=== PATIENT | female | born 1975 | race Caucasian/White ===

== ENCOUNTER 2016-12-27 10:46 | Emergency (ER) | payer OTHER ==
[~2016-12-27] VITALS: Wt 77.0 kg
[2016-12-27] MEDS ORDERED: ONDANSETRON (ODT) 4 MG TAB ODT STA (11:49)
[2016-12-27] MEDS ORDERED: KETOROLAC 30 MG INJ IM STA (11:49)
[2016-12-27 12:15] LABS: ADD UMIC YES; URINE BILIRUBIN (Dip) NEGATIVE (NEGATIVE); URINE BLOOD (Dip) 3+ (NEGATIVE); URINE COLOR LT. YELLOW (YELLOW); URINE GLUCOSE (Dip) NEGATIVE (NEGATIVE); URINE KETONES (Dip) NEGATIVE (NEGATIVE); URINE LEUKOCYTE ESTERASE (Dip) NEGATIVE (NEGATIVE); URINE NITRITE (Dip) NEGATIVE (NEGATIVE); URINE TOTAL PROTEIN (Dip) NEGATIVE (NEGATIVE); URINE UROBILINOGEN (Dip) 0.2 E.U./dL (0.1-1.0)
[2016-12-27 12:22] LABS: BASOPHILS % 0.5 % (0.0-2.0); EOSINOPHILS # 0.1 10^3/ul (0.0-0.5); EOSINOPHILS % 0.7 % (0.0-7.0); HEMATOCRIT 34.7 % (37.0-47.0); HEMOGLOBIN 11.9 g/dl (12.0-16.0); LYMPHOCYTES # 1.5 10^3/ul (0.8-2.9); LYMPHOCYTES % 18.4 % (15.0-51.0); MEAN CORPUSCULAR HEMOGLOBIN 30.2 pg (29.0-33.0); MEAN CORPUSCULAR HGB CONC 34.2 g/dl (32.0-37.0); MEAN CORPUSCULAR VOLUME 88.2 fl (82.0-101.0); MEAN PLATELET VOLUME 7.5 fl (7.4-10.4); MONOCYTE # 0.5 10^3/ul (0.3-0.9); MONOCYTES % 6.1 % (0.0-11.0); NEUTROPHILS % 74.3 % (39.0-77.0); PLATELET COUNT 339 10^3/UL (140-440); RED BLOOD COUNT 3.94 10^6/ul (4.20-5.40); RED CELL DISTRIBUTION WIDTH 12.4 % (11.5-14.5); UNCORRECTED WBC 8.1 10^3/ul (4.8-10.8); WHITE BLOOD COUNT 8.1 10^3/ul (4.8-10.8)
[2016-12-27 12:24] LABS: BACTERIA,URINE FEW; URINE RBCS 0-2 /HPF (0)
[2016-12-27 12:25] LABS: ALBUMIN 3.9 g/dl (3.3-4.9)
[2016-12-27 12:26] LABS: POTASSIUM 3.9 mmol/L (3.5-5.1)
[2016-12-27 12:28] LABS: ALBUMIN/GLOBULIN RATIO 1.14; BILIRUBIN,INDIRECT 0.2 mg/dl (0-1.1); BILIRUBIN,TOTAL 0.2 mg/dl (0.2-1.3); CREATININE 0.65 mg/dl (0.44-1.00); TOTAL PROTEIN 7.3 g/dl (6.1-8.1)
[2016-12-27 12:31] LABS: CONDITION 1
--- NOTE | 2016-12-27 13:09 | RADRPT ---
PROCEDURE: US Pelvis. CLINICAL INDICATION: Pelvic pain TECHNIQUE: Multiple sonographic images of the pelvis were obtained utilizing a transabdominal and endovaginal technique. The images were reviewed on a PACS workstation. COMPARISON: October 08, 2013 FINDINGS: The uterus is visualized and measures 9.7 x 4.9 x 5.7 cm. The endometrial echo complex measures 5 mm thickness. No uterine masses are identified. The right ovary measures 5.9 x 3.5 x 4.3 cm . The left ovary measures 9.0 x 7.3 x 7.3 cm. A 6.8 cm irregularly shaped mildly hyperechoic soft tissue echogenicity lesion is identified on the left ova ry. A few complex cyst containing echogenic debris are identified on the right ovary. The largest measures up to 3.4 cm. The ovaries demonstrate normal vascularity. No pelvic free fluid is seen. IMPRESSION: 6.8 cm irregularly shaped hyperechoic, soft tissue echogenicity lesion on the left ovary. This coul d reflect a large hemorrhagic cyst, endometrioma, dermoid or potentially tumor. A similar lesion was noted on prior exam. However, the current lesion appears larger than on prior exam (previously 5.4 cm).. Close continued follow-up with repeat exam in 8 weeks to assess stability is recommended. A lternatively further characterization with CT or MRI could be helpful. A few complex cyst containing echogenic debris on the right ovary, measuring up to 3.4 cm. These li uma reflect hemorrhagic cysts. However continued follow-up with repeat exam in 8 weeks to assess s tability is recommended. If further characterization of the organs of the pelvis is needed CT or MRI should be considered. RPTAT: AA .Kristopher Russell MD, MD Date Time Electronically viewed and signed by .Kristopher Russell MD, on 12/27/2016 13:08 .P/
--- NOTE | 2016-12-27 14:11 | RADRPT ---
PROCEDURE: CT Abdomen and Pelvis without contrast. CLINICAL INDICATION: Abdominal pelvic pain. Right lower quadrant pain. Abnormal pelvic ultrasound . TECHNIQUE: CT scan of the abdomen and pelvis without contrast was performed on a multidetector hig h-resolution CT scanner. The patient was scanned without intravenous contrast. Coronal and sagittal reformatted images were obtained from the axial source images. Images were reviewed on a high-resol [employer] PACS workstation. The total exam CTDI equals 12.56 mGy and the total exam DLP equals 739.68 mG y-cm. One or more of the following dose reduction techniques were used: - Automated exposure control. - Adjustment of the mA and/or kV according to patient size. - Use of iterative reconstruction technique. COMPARISON: Pelvic ultrasound dated 12/27/2016; pelvic ultrasound dated 10/08/2013 FINDINGS: CT abdomen: The lung bases are clear. The heart size is normal, without pericardial thickening or effusion. Th e liver is normal in size and density without focal mass or intrahepatic biliary dilatation. The sp avery is normal in size and homogeneous in density. The stomach is partially collapsed, but is gross ly unremarkable. The pancreas as visualized is normal. The gallbladder and biliary tree are unrema rkable and there is no evidence for biliary dilatation. The adrenal glands are symmetric and normal . The kidneys are symmetrically unremarkable as well. No renal calculus or obstructive uropathy or mass lesion is seen. The aorta is of normal caliber. There is no retroperitoneal lymphadenopathy. The janey hepatis reg ion is clear. The bowel and mesentery, as visualized, are equally unremarkable. CT pelvis: The small bowel loops situated within the pelvis are unremarkable. The appendix is visualized and i s normal. The pelvic organs are remarkable for a large complex heterogeneous dense cystic masses in volving the ovaries bilaterally, the larger of which is in the left ovary measuring up to 6.7 cm in maximal dimension. Multiple additional smaller cysts are seen involving the adnexal regions and ova spencer bilaterally. Further evaluation with pelvic ultrasound is advised. The pelvic sidewalls and i nguinal regions are clear. The sigmoid colon and rectum are unremarkable. No free fluid is present . No acute inflammation is identified at this time. The surrounding osseous structures are remarkable for degenerative spondylosis of the spine. No ost eolytic or osteoblastic lesion is detected. IMPRESSION: 1. Complex cystic masses within the pelvis. Further evaluation with MRI is advised. (Unfortunatel y, the prior ultrasound pelvis report stated that a "CT or MRI should be considered." However, MRI is required for further assessment of these pelvic lesions. Evaluation is limited on this noncontra st CT scan. 2. Otherwise, the remainder of the CT abdomen pelvis is unremarkable. No other significant abnorma lity is identified. RPTAT: HMJB .Shady Diallo MD, MD Date Time Electronically viewed and signed by .Shady Diallo MD, on 12/27/2016 14:11 .B/
[2016-12-27] MEDS ORDERED: IBUP-1542 PO (14:38)
--- NOTE | 2016-12-27 14:53 | ERD ---
ER Documentation Chief Complaint Date/Time DATE: 12/27/16 TIME: 14:45 Chief Complaint LOWER ABD PAIN SINCE TODAY WITH NAUSE AND VOMITING. IRREGULAR PERIOD HPI Patient is a 41-year-old female with a history of left ovarian cyst, endometriosis who presents to the emergency department with lower abdominal pain 2 days. Patient states that her pain is primarily in the right lower quadrant. She states that the pain is constant and sharp in nature. Patient reports taking Menstridol and ibuprofen for symptoms which has minimally alleviated her pain. Patient reports a fever of 101F 3 days prior. Patient is currently afebrile. Patient reports nausea and denies any vomiting. She denies any pain with urination, frequency, urgency. Patient denies any excessive vaginal bleeding. Patient states she does have a history of irregular periods and she is currently on her period. ROS All systems reviewed and are negative except as per history of present illness. Medications Home Meds Active Scripts Ibuprofen* (Motrin*) 600 Mg Tab, 600 MG PO Q6, #30 TAB Prov:FORREST BEE PA-C 12/27/16 Allergies Allergies: Coded Allergies: No Known Drug Allergy (Verified Allergy, Unknown, 12/27/16) PMhx/Soc History of Surgery: Yes (D AND C) Anesthesia Reaction: No Hx Neurological Disorder: No Hx Respiratory Disorders: No Hx Cardiac Disorders: Yes (HTN) Hx Psychiatric Problems: No Hx Miscellaneous Medical Probl: No Hx Alcohol Use: No Hx Substance Use: No Hx Tobacco Use: No Smoking Status: Never smoker FmHx Family History: No diabetes Physical Exam Vitals Vital Signs Date Time Temp Pulse Resp B/P Pulse Ox O2 Delivery O2 Flow Rate FiO2 12/27/16 10:51 98.0 70 20 180/95 100 Physical Exam GENERAL: Well-developed, well-nourished female. Appears in no acute distress. HEAD: Normocephalic, atraumatic. EYES: Pupils are equally reactive bilaterally. EOMs grossly intact. No conjunctival erythema. ENT: Moist mucous membranes. No uvula deviation. No kissing tonsils. NECK: Supple. No meningismus. Normal range of motion of the neck. LUNG: Clear to auscultation bilaterally. No rhonchi, wheezing, rales or coarse breath sounds. HEART: Regular rate and rhythm. No murmurs, rubs or gallops. ABDOMEN: No scars, ecchymosis or rashes noted. Soft, and nondistended. Tender to palpation of the right lower quadrant and right pelvic region. No rebound tenderness, no guarding. (-) McBurney's point tenderness. No CVA tenderness. BACK: No midline tenderness. EXTREMITIES: Equal pulses bilaterally. No peripheral clubbing, cyanosis or edema. No unilateral leg swelling. NEUROLOGIC: Alert and oriented. Moving all four extremities without any difficulty. Normal speech. Steady gait. SKIN: Normal color. Warm and dry. No rashes or lesions. Result Diagram: 12/27/16 1208 12/27/16 1208 Results 24 hrs Laboratory Tests Test 12/27/16 12:04 12/27/16 12:08 Urine Bacteria FEW Urine Bilirubin NEGATIVE Urine Clarity CLEAR Urine Color LT. YELLOW Urine Epithelial Cells FEW Urine Glucose NEGATIVE% Urine Hemoglobin 3+ Urine Ketones NEGATIVE Urine Leukocyte Esterase NEGATIVE Urine Microscopic RBC 0-2/HPF Urine Microscopic WBC 0-2/HPF Urine Nitrite NEGATIVE Urine Specific Brackney <=1.005 Urine Total Protein NEGATIVE Urine Urobilinogen 0.2 E.U./dL Urine pH 6.5 Alanine Aminotransferase (ALT/SGPT) 29IU/L Albumin 3.9g/dl Albumin/Globulin Ratio 1.14 Alkaline Phosphatase 113IU/L Anion Gap 16 Aspartate Amino Transf (AST/SGOT) 28IU/L Basophils # 0.010^3/ul Basophils % 0.5% Blood Urea Nitrogen 10mg/dl Calcium Level 9.0mg/dl Carbon Dioxide Level 27mmol/L Chloride Level 104mmol/L Creatinine 0.65mg/dl Direct Bilirubin 0.00mg/dl Eosinophils # 0.110^3/ul Eosinophils % 0.7% Globulin 3.40g/dl Glucose Level 84mg/dl Hematocrit 34.7% Hemoglobin 11.9g/dl Indirect Bilirubin 0.2mg/dl Lipase 168U/L Lymphocytes # 1.510^3/ul Lymphocytes % 18.4% Mean Corpuscular Hemoglobin 30.2pg Mean Corpuscular Hemoglobin Concent 34.2g/dl Mean Corpuscular Volume 88.2fl Mean Platelet Volume 7.5fl Monocytes # 0.510^3/ul Monocytes % 6.1% Neutrophils # 6.010^3/ul Neutrophils % 74.3% Nucleated Red Blood Cells # 0.010^3/ul Nucleated Red Blood Cells % 0.0/100WBC Platelet Count 44202^3/UL Potassium Level 3.9mmol/L Red Blood Count 3.9410^6/ul Red Cell Distribution Width 12.4% Sodium Level 143mmol/L Total Bilirubin 0.2mg/dl Total Protein 7.3g/dl White Blood Count 8.110^3/ul Current Medications Medications (Trade) Dose Ordered Sig/Ashlee Route PRN Reason Start Time Stop Time Status Last Admin Dose Admin Ketorolac Tromethamine (Toradol) 30 mg ONCE STAT IM 12/27/16 11:49 12/27/16 11:52 DC 12/27/16 12:03 Ondansetron HCl (Zofran Odt) 4 mg ONCE STAT ODT 12/27/16 11:49 12/27/16 11:52 DC Procedures/MDM ED COURSE: The patient was stable throughout ED course. I kept the patient and/or family informed of laboratory and diagnostic imaging results throughout the ED course. DIAGNOSTIC IMAGING: Read by radiologist. DIAGNOSTIC IMAGING REPORT Patient: AC RUSSELL : 1975 Age: 41 Sex: F MR #: [id number] DOS: 12/27/16 1149 Ordering MD: FORREST BEE PA-C Location: [facility] Room/Bed: PROCEDURE: US Pelvis. CLINICAL INDICATION: Pelvic pain TECHNIQUE: Multiple sonographic images of the pelvis were obtained utilizing a transabdominal and endovaginal technique. The images were reviewed on a PACS workstation. COMPARISON: October 08, 2013 FINDINGS: The uterus is visualized and measures 9.7 x 4.9 x 5.7 cm. The endometrial echo complex measures 5 mm thickness. No uterine masses are identified. The right ovary measures 5.9 x 3.5 x 4.3 cm . The left ovary measures 9.0 x 7.3 x 7.3 cm. A 6.8 cm irregularly shaped mildly hyperechoic soft tissue echogenicity lesion is identified on the left ovary. A few complex cyst containing echogenic debris are identified on the right ovary. The largest measures up to 3.4 cm. The ovaries demonstrate normal vascularity. No pelvic free fluid is seen. IMPRESSION: 6.8 cm irregularly shaped hyperechoic, soft tissue echogenicity lesion on the left ovary. This could reflect a large hemorrhagic cyst, endometrioma, dermoid or potentially tumor. A similar lesion was noted on prior exam. However, the current lesion appears larger than on prior exam (previously 5.4 cm).. Close continued follow-up with repeat exam in 8 weeks to assess stability is recommended. Alternatively further characterization with CT or MRI could be helpful. A few complex cyst containing echogenic debris on the right ovary, measuring up to 3.4 cm. These likely reflect hemorrhagic cysts. However continued follow- up with repeat exam in 8 weeks to assess stability is recommended. If further characterization of the organs of the pelvis is needed CT or MRI should be considered. RPTAT: AA .Kristopher Russell MD, Date Time Electronically viewed and signed by .Kristopher Russell MD, on 12/27/2016 13:08 .P/ CC: FORREST BEE PA-C DIAGNOSTIC IMAGING REPORT Patient: AC RUSSELL : 1975 Age: 41 Sex: F MR #: [id number] DOS: 12/27/16 1242 Ordering MD: FORREST BEE PA-C Location: [facility] Room/Bed: PROCEDURE: CT Abdomen and Pelvis without contrast. CLINICAL INDICATION: Abdominal pelvic pain. Right lower quadrant pain. Abnormal pelvic ultrasound. TECHNIQUE: CT scan of the abdomen and pelvis without contrast was performed on a multidetector high-resolution CT scanner. The patient was scanned without intravenous contrast. Coronal and sagittal reformatted images were obtained from the axial source images. Images were reviewed on a high-resolution PACS workstation. The total exam CTDI equals 12.56 mGy and the total exam DLP equals 739.68 mGy-cm. One or more of the following dose reduction techniques were used: - Automated exposure control. - Adjustment of the mA and/or kV according to patient size. - Use of iterative reconstruction technique. COMPARISON: Pelvic ultrasound dated 12/27/2016; pelvic ultrasound dated 2012 FINDINGS: CT abdomen: The lung bases are clear. The heart size is normal, without pericardial thickening or effusion. The liver is normal in size and density without focal mass or intrahepatic biliary dilatation. The spleen is normal in size and homogeneous in density. The stomach is partially collapsed, but is grossly unremarkable. The pancreas as visualized is normal. The gallbladder and biliary tree are unremarkable and there is no evidence for biliary dilatation. The adrenal glands are symmetric and normal. The kidneys are symmetrically unremarkable as well. No renal calculus or obstructive uropathy or mass lesion is seen. The aorta is of normal caliber. There is no retroperitoneal lymphadenopathy. The janey hepatis region is clear. The bowel and mesentery, as visualized, are equally unremarkable. CT pelvis: The small bowel loops situated within the pelvis are unremarkable. The appendix is visualized and is normal. The pelvic organs are remarkable for a large complex heterogeneous dense cystic masses involving the ovaries bilaterally, the larger of which is in the left ovary measuring up to 6.7 cm in maximal dimension. Multiple additional smaller cysts are seen involving the adnexal regions and ovaries bilaterally. Further evaluation with pelvic ultrasound is advised. The pelvic sidewalls and inguinal regions are clear. The sigmoid colon and rectum are unremarkable. No free fluid is present. No acute inflammation is identified at this time. The surrounding osseous structures are remarkable for degenerative spondylosis of the spine. No osteolytic or osteoblastic lesion is detected. IMPRESSION: 1. Complex cystic masses within the pelvis. Further evaluation with MRI is advised. (Unfortunately, the prior ultrasound pelvis report stated that a "CT or MRI should be considered." However, MRI is required for further assessment of these pelvic lesions. Evaluation is limited on this noncontrast CT scan. 2. Otherwise, the remainder of the CT abdomen pelvis is unremarkable. No other significant abnormality is identified. RPTAT: HMJB .Shady Diallo MD, MD Date Time Electronically viewed and signed by .Shady Diallo MD, MD on 12/27/2016 14:11 .B/ CC: FORREST BEE PA-C MEDICAL DECISION MAKING: This is a 41-year-old female who presents with right lower quadrant abdominal pain and right sided pelvic pain. Patient reported a history of endometriosis and left ovarian cyst. Vital signs were reviewed. Patient is afebrile. CBC showed no evidence of systemic infection. Hemoglobin level was noted to be 11.9 , hematocrit of 34.7. CMP showed no evidence of electrolyte abnormalities, severe acidosis, alkalosis, renal failure, or liver disease. Lipase showed no evidence of acute pancreatitis. UA showed no evidence of acute infection. Positive hemoglobin findings are likely due to the fact that patient is currently menstruating. Low suspicion for UTI, pyelonephritis or nephrolithiasis. Urine test was negative. Pelvic ultrasound showed 6.8 cm irregularly shaped hyperechoic, soft tissue echogenicity lesion on the left ovary. This could reflect a large hemorrhagic cyst, endometrioma, dermoid or potentially tumor. A similar lesion was noted on prior exam. However, the current lesion appears larger than on prior exam (previously 5.4 cm).. Close continued follow-up with repeat exam in 8 weeks to assess stability is recommended. Alternatively further characterization with CT or MRI could be helpful. A few complex cyst containing echogenic debris on the right ovary, measuring up to 3.4 cm. These likely reflect hemorrhagic cysts. However continued follow-up with repeat exam in 8 weeks to assess stability is recommended. CT abdomen pelvis without IV contrast showed Complex cystic masses within the pelvis. Further evaluation with MRI is advised. ( Unfortunately, the prior ultrasound pelvis report stated that a "CT or MRI should be considered." However, MRI is required for further assessment of these pelvic lesions. Evaluation is limited on this noncontrast CT scan. Otherwise, the remainder of the CT abdomen pelvis is unremarkable. No other significant abnormality is identified. At this time, patient's presentation is most consistent with bilateral ovarian cysts. I have a much lower clinical concern for acute coronary syndrome, lower lobe pneumonia, DKA, bowel perforation, bowel obstruction, cholecystitis, pancreatitis, splenic rupture, diverticulosis, diverticulitis, UTI, pyelonephritis, nephrolithiasis, appendicitis, , ectopic , ovarian torsion or tubo-ovarian abscess. I discussed the patient's ultrasound and CT scan results with her at length.Currently, ultrasound report shows that the ovaries demonstrate normal vascularity. Patient understands that given the increased size of the patient's left ovarian cyst, patient has an increased risk of ovarian torsion in the future. Patient's understands the importance of following up with her [facility]URSE [facility]Y in 8 weeks for follow-up examination and repeat ultrasound. Patient was given a copy of blood work and imaging studies. PRESCRIPTIONS: Ibuprofen DISCHARGE: At this time, patient is stable for discharge and outpatient management. I have instructed the patient to follow-up with his/her primary care physician/OBGYN in 1-2 days. I have instructed the patient to promptly return to the ER at any time for any new or worsening symptoms including increased pain, nausea, vomiting, diarrhea, fever, weakness or LOC. The patient and/or family expressed understanding of and agreement with this plan. All questions were answered. Home care instructions were provided. Patients blood pressure was elevated (>120/80) but appears stable without evidence of hypertensive emergency, hypertensive urgency or end-organ failure. I had discussion with the patient about the risks of hypertension. I have advised the patient to follow up with his/her primary care physician for outpatient monitoring and treatment for hypertension in 2-3 days. I have instructed the patient to return to the ER for any new or worsening symptoms including chest pain, shortness of breath, headache, blurred vision, confusion, nausea, vomiting or LOC. Departure Diagnosis: Primary Impression: Ovarian cyst Laterality: bilateral Qualified Code: N83.201 - Cysts of both ovaries Condition: Stable Patient Instructions: What Are Ovarian Cysts? Referrals: JARAD CODY MD (PCP) Additional Instructions: Call your primary care doctor/OBGYN TOMORROW for an appointment during the next 1-2 days.See the doctor sooner or return here if your condition worsens before your appointment time. Patient should follow-up with her NURSE EMERGENCY for repeat ultrasound in 8 weeks. Patient given imaging and blood work reports. Patient advised to return to the ER for any new or worsening pain, nausea, vomiting, LOC. FORREST BEE PA-C Dec 27, 2016 14:53
== END 2016-12-27 15:25 | disposition home or self-care (01) ==
LOC: FTE 10:46
DX: N83.201 Unspecified ovarian cyst, right side (principal); I10 Essential (primary) hypertension; R10.2 Pelvic and perineal pain; R11.0 Nausea
CPT/HCPCS: 74176; 76830; 76856; 80053; 81001; 81003; 83690; 85025; 96372; J1885; Z7502; Z7610

== ENCOUNTER 2017-11-07 04:12 | Emergency (ER) | END 2017-11-07 08:57 | disposition home or self-care (01) ==

== ENCOUNTER 2018-08-19 20:48 | Emergency (ER) | END 2018-08-19 22:17 | disposition home or self-care (01) ==